=== PATIENT | male | born 1980 | race Caucasian/White ===

== ENCOUNTER 2020-06-23 08:36 | Emergency (ER) | payer MEDICAID ==
[~2020-06-23] VITALS: Ht 165.1 cm; Wt 69.0 kg
[2020-06-23 08:41] VITALS: BP 142/78
[2020-06-23] MEDS ORDERED: SODIUM CHLORIDE 0.9% 1,000 ML IV ONE (09:00)
[2020-06-23] MEDS ORDERED: LEVETIRACETAM 500MG PREMIX 100 ML IV ONE (09:00)
== END 2020-06-23 09:51 | disposition left against medical advice (07) ==
LOC: ER 08:36
DX: R56.9 Unspecified convulsions (principal); Z53.21 Procedure and treatment not carried out due to patient leaving prior to being seen by health care provider
CPT/HCPCS: 70450; 93005; J7030; Z7610; J1953

== ENCOUNTER 2020-08-15 15:18 | Emergency (ER) | payer MEDICAID ==
[~2020-08-15] VITALS: Ht 162.6 cm; Wt 68.0 kg
[2020-08-15 15:19] VITALS: BP 136/84
== END 2020-08-15 15:47 | disposition left against medical advice (07) ==
LOC: ER 15:25
DX: F10.229 Alcohol dependence with intoxication, unspecified (principal); Y90.9 Presence of alcohol in blood, level not specified; G40.909 Epilepsy, unspecified, not intractable, without status epilepticus; Z87.820 Personal history of traumatic brain injury
CPT/HCPCS: 99283

== ENCOUNTER 2020-08-29 09:30 | Emergency (ER) | payer MEDICAID ==
[~2020-08-29] VITALS: Ht 167.6 cm; Wt 69.0 kg
[2020-08-29 09:32] VITALS: BP 122/88
== END 2020-08-29 09:51 | disposition left against medical advice (07) ==
LOC: ER 09:30
DX: G40.909 Epilepsy, unspecified, not intractable, without status epilepticus (principal); F10.21 Alcohol dependence, in remission
CPT/HCPCS: 99283

== ENCOUNTER 2020-11-18 14:46 | Emergency (ER) | payer MEDICAID ==
[~2020-11-18] VITALS: Ht 167.6 cm; Wt 85.0 kg
[2020-11-18] MEDS ORDERED: SODIUM CHLORIDE 0.9% 1,000 ML IV ONE (15:00)
[2020-11-18] MEDS ORDERED: DIPHENHYDRAMINE 50MG/ML VIAL IM STA (15:15)
[2020-11-18] MEDS ORDERED: HALOPERIDOL LACTATE 5MG/ML VIAL IM STA (15:15)
[2020-11-18 17:40] LABS: BASOPHILS % 1.2 % (0.0-2.0); HEMATOCRIT. 35.2 % (42.0-52.0); HEMOGLOBIN. 12.1 g/dL (14.0-18.0); LYMPHOCYTES % 31.3 % (20.0-50.0); MEAN CORPUSCULAR HEMOGLOBIN 30.5 pg (28.0-32.0); MEAN CORPUSCULAR VOLUME 88.9 fL (80.0-94.0); MEAN PLATELET VOLUME 7.9 fl (7.4-10.4); MONOCYTES % 9.4 % (2.0-8.0); NEUTROPHILS % 57.1 % (40.0-76.0); PLATELET 238 x1000/uL (130-400); RED BLOOD CELL COUNT 3.96 mill/uL (4.7-6.1); RED CELL DISTRIBUTION WIDTH 14.2 % (11.6-14.6)
[2020-11-18 17:41] LABS: CHLORIDE 107 mEq/L (98-107)
[2020-11-18 17:45] LABS: ETHANOL BLOOD 232 mg/dL
[2020-11-18 17:59] LABS: PROTHROMBIN TIME 10.5 sec (9.6-11.0)
[2020-11-18] MEDS ORDERED: KCL 20MEQ/100ML PREMIX 100 ML IV ONE (18:30)
[2020-11-18] MEDS ORDERED: LEVETIRACETAM 1000MG PREMIX 100 ML IV ONE (21:00)
[2020-11-19 05:38] VITALS: BP 124/81
== END 2020-11-19 06:00 | disposition home or self-care (01) ==
LOC: ER 14:49
DX: F10.229 Alcohol dependence with intoxication, unspecified (principal); Y90.7 Blood alcohol level of 200-239 mg/100 ml; E87.6 Hypokalemia; G40.909 Epilepsy, unspecified, not intractable, without status epilepticus
CPT/HCPCS: 36415; 70450; 80053; 80320; 85025; 85610; 96361; 96365; 96366; 96367; 96372; 99285; J1200; J1630; J1953; J3480; G0480